=== PATIENT | male | born 1980 | race Caucasian/White ===

== ENCOUNTER 2021-04-05 18:43 | Emergency (ER) | payer OTHER ==
[~2021-04-05] VITALS: Ht 177.8 cm; Wt 113.4 kg
--- NOTE | 2021-04-05 19:35 | NUR ---
PT PROVIDED WITH WARM BLANKETS.
[2021-04-05 20:05] VITALS: BP 129/68
--- NOTE | 2021-04-05 20:09 | NUR ---
pt aaox4, no acute distress noted, resp even and unlabored. pt debnies si/hi. pt requesting to be discharge at this time. will notify er .
--- NOTE | 2021-04-05 20:31 | NUR ---
Patient does not wish to proceed with medical care recommended by Dr. Jacobsen). Patient given information related to possible complications, up to and including , which could occur as a result of leaving the hospital at this time. Patient verbalizes understanding of risks involved due to leaving against medical advice. Patient has signed AMA form. pt aaox4 no acute distress noted, resp even and unlabored. pt verbalilze understanding.
== END 2021-04-05 20:36 | disposition left against medical advice (07) ==
LOC: ER 18:46
DX: T40.411A Poisoning by fentanyl or fentanyl analogs, accidental (unintentional), initial encounter (principal); F32.9 Major depressive disorder, single episode, unspecified; F20.9 Schizophrenia, unspecified; Y92.89 Other specified places as the place of occurrence of the external cause